=== PATIENT | male | born 1990 | race Two or more races ===

== ENCOUNTER 2020-09-06 20:21 | Emergency (ER) | payer OTHER ==
[~2020-09-06] VITALS: Ht 180.3 cm; Wt 95.7 kg
[2020-09-06 20:39] VITALS: BP 107/65
[2020-09-06] MEDS ORDERED: KETOROLAC 30 MG/ML VIAL IVP ONE (21:05)
[2020-09-06] MEDS ORDERED: NACL 0.9% 1,000 ML IV ONE (21:05)
--- NOTE | 2020-09-06 21:10 | NUR ---
30 Y/O M BIB SELF FROM HOME, PATIENT PRESENTS TO ED WITH ABD PAIN THAT STARTED THIS MORNING 09/06/20. PT STATES HE HAS BEEN HAVING DIARRHEA, NAUSEA, VOMITING, DENIES BEING ABLE TO HOLD ANYTHING DOWN, BURNING SENSATION WITH URINATION; SKIN IS PINK/WARM/DRY; AAOX4 WITH EVEN AND STEADY GAIT; LUNGS CLEAR BL; HR EVEN AND REGULAR; PT DENIES ANY FEVER, CP, SOB, OR COUGH AT THIS TIME; PATIENT STATES PAIN OF 9/10 AT THIS TIME, PAIN RADIATES TO LOWER EXTREMITIES AND LOWER BACK; VSS; PATIENT POSITIONED FOR COMFORT; HOB ELEVATED; BEDRAILS UP X2; BED DOWN. ER MD MADE AWARE OF PT STATUS. NKA. NO PMH. PT WAS ABLE TO GIVE URINE, CURRENTLY IN GOWN FOR ASSESSMENT AND POSSIBLE IMAGING PER PROTOCOL.
[2020-09-06] MEDS ORDERED: ACET-8386 PO ×2 (22:03→22:51)
[2020-09-06] MEDS ORDERED: LOPE-289 PO ×2 (22:03→22:51)
[2020-09-06] MEDS ORDERED: IBUP-2213 PO ×2 (22:03→22:51)
[2020-09-06] MEDS ORDERED: ONDA8TAB87 PO ×2 (22:03→22:51)
[2020-09-06 22:58] VITALS: BP 107/65
--- NOTE | 2020-09-06 22:58 | NUR ---
Patient discharged with v/s stable. Written and verbal after care instructions given and explained. Patient alert, oriented and verbalized understanding of instructions. Ambulatory with steady gait. All questions addressed prior to discharge. ID band removed. Patient advised to follow up with PMD. Rx of HYDROCODONE, IBUPROFEN, LOPERAMIDE, ONDANSETRON given. Patient educated on indication of medication including possible reaction and side effects. Opportunity to ask questions provided and answered.
== END 2020-09-06 22:58 | disposition home or self-care (01) ==
LOC: MED 20:21
DX: M79.10 Myalgia, unspecified site (principal); R11.2 Nausea with vomiting, unspecified; R19.7 Diarrhea, unspecified; M54.5 Low back pain; Z20.822 Contact with and (suspected) exposure to COVID-19
CPT/HCPCS: 81002; 96361; 96374; 99283; J1885; J7030; U0003